=== PATIENT | male | born 1985 | race Caucasian/White ===

== ENCOUNTER 2016-10-31 11:11 | Emergency (ER) | payer SELFPAY ==
--- NOTE | 2016-10-31 16:03 | RAD ---
HISTORY: Testicular pain COMPARISONS: None TECHNIQUE: Multiple transverse and longitudinal ultrasound images were obtained of the scrotum, using grayscale, color Doppler, and spectral Doppler imaging. FINDINGS: RIGHT: RIGHT TESTICLE: The right testicle measures 5.1 x 2.1 x 3 cm. The right testicle is homogeneous in echotexture, without testicular parenchymal mass. Normal arterial and venous waveforms are identified within the right testicle on spectral Doppler imaging. RIGHT EPIDIDYMIS: The right epididymis measures 0.8 cm at the head. RIGHT SCROTUM: There is no hydrocele or varicocele. LEFT: LEFT TESTICLE: The left testicle measures 4.9 x 2.3 x 2.7 cm. The left testicle is homogeneous in echotexture, without testicular parenchymal mass. Normal arterial and venous waveforms are identified within the left testicle on spectral Doppler imaging. LEFT EPIDIDYMIS: The left epididymis measures 1.7 cm at the head. There is a 0.8 cm epididymal cyst. LEFT SCROTUM: There is a small hydrocele. There is a small left varicocele. OTHER: None IMPRESSION: 1. NO TESTICULAR PARENCHYMAL MASS. 2. NO SONOGRAPHIC FEATURES OF TORSION. PLEASE NOTE THAT PARTIAL OR INTERMITTENT TORSION MAY BE SONOGRAPHICALLY NORMAL.. 3. SMALL LEFT HYDROCELE AND VARICOCELE.
[2016-10-31 16:48] VITALS: BP 135/78
--- NOTE | 2016-10-31 16:56 | UC ---
Julita Jordan Janilya, scribed for Madie Larsen DO on 10/31/16 at 1451 . Abdominal Pain Male HPI - HPI Summary HPI Summary: A 31 y/o came in to [facility] presenting w/ a gradual onset of intermittent dull lower abd pain for approximately a month. Currently, pt is in mild pain of severity of 3/10. In the last 3 days, the pain has radiated beyond lower abd pain into the groin area. Severity is increased to 4/10 when pt urinates or passing stool. Pt says "sharp pain passes when he passes stool". However, pt denies burning when urinating. Pt states that bowel movement is daily and normal. Pt denies blood in stool, discharge from penis, nausea, vomiting, diarrhea, rashes, VELAZQUEZ. Pt denies swelling redness or tenderness in the testicles or srotum but states that he feels the pain may be coming from there. Pt does report night sweats in the last 2-3 days. Pt states he recently quit drinking 5 and a half weeks ago. PMHx food poisoning in late July. - History of Current Complaint Chief Complaint: UCAbdominalPain Stated Complaint: ABDOMINAL PAIN Time Seen by Provider: 10/31/16 14:45 Hx Obtained From: Patient Onset/Duration: Gradual Onset, Lasting Weeks, Still Present Timing: Intermittent Episodes Lasting: - hours Severity Initially: Moderate Severity Currently: Moderate Pain Intensity: 3 Pain Scale Used: 0-10 Numeric Location: Suprapubic, Other - lower abd Radiates: Yes Radiates to: Inguinal Character: Dull Aggravating Factor(s):: Nothing Alleviating Factor(s): Nothing Associated Signs And Symptoms: Positive: Diaphoresis. Negative: Fever, Cough, Chest Pain, Dizzy, Back Pain, Constipation, Blood in Stool, Urinary Symptoms, Nausea, Vomiting, Diarrhea, Penile Discharge - Risk Factors Testicular Torsion: Negative - Allergies/Home Medications Allergies/Adverse Reactions: Allergies Allergy/AdvReac Type Severity Reaction Status Date / Time No Known Allergies Allergy Verified 10/31/16 12:42 Home Medications: Home Medications NK [No Home Medications Reported] 10/31/16 [History Confirmed 10/31/16] PMH/Surg Hx/FS Hx/Imm Hx Previously Healthy: Yes Endocrine History Of: Denies: Diabetes - Surgical History Surgical History: None - Family History Known Family History: Positive: Other - prostate cancer - father Negative: Cardiac Disease, Hypertension, Diabetes - Social History Alcohol Use: None Substance Use Type: None Smoking Status (MU): Never Smoked Tobacco Review of Systems Constitutional: Other - diaphoresis Skin: Negative Eyes: Negative ENT: Negative Respiratory: Negative Cardiovascular: Negative Gastrointestinal: Abdominal Pain - lower abd pain Genitourinary: Negative Motor: Negative Neurovascular: Negative Musculoskeletal: Negative Neurological: Negative Psychological: Negative All Other Systems Reviewed And Are Negative: Yes Physical Exam Triage Information Reviewed: Yes Appearance: Well-Appearing, No Pain Distress, Well-Nourished Vital Signs: Initial Vital Signs Temp 99.4 F 10/31/16 12:37 Pulse 60 10/31/16 12:37 Resp 16 10/31/16 12:37 BP 142/98 10/31/16 12:37 Pulse Ox 100 10/31/16 12:37 Vital Signs Reviewed: Yes Eyes: Positive: Conjunctiva Clear. Negative: Discharge ENT: Positive: Hearing grossly normal. Negative: Muffled/hoarse voice Neck exam: Normal Neck: Positive: Supple Respiratory: Positive: Lungs clear, Normal breath sounds, No respiratory distress, No accessory muscle use Cardiovascular: Positive: RRR, No Murmur Abdomen Description: Positive: Soft, Other: - Superpubic tenderness. No swelling , redness or pain with palpation of testicles or scrotum. Prostate is mildly enlarged and nontender. penis is normal. no lsions or discharge. no tenderness in rlq.. Negative: Nontender, CVA Tenderness (R), CVA Tenderness (L) , Distended, Guarding, McBurney's Point Tenderness Bowel Sounds: Positive: Present Musculoskeletal Exam: Normal Neurological: Positive: Alert, Muscle Tone Normal Psychological Exam: Normal Psychological: Positive: Age Appropriate Behavior Skin Exam: Normal Skin: Positive: Other - warm, dry, normal color Abd Pain Male Course/Dx - Differential Dx/Clinical Impression Differential Diagnosis/HQI/PQRI: Appendicitis, Prostatitis, Testicular Torsion, Ureteral Stone, Urinary Tract Infection, Other - ibs, ic Provider Diagnoses: abd pain Discharge - Discharge Plan Condition: Stable Disposition: HOME Patient Education Materials: Abdominal Pain (ED), Irritable Bowel Syndrome (ED) , Laxative, Bulk-forming (By mouth), Probiotic (By mouth) Referrals: No Primary Care Phys,NOPCP [Primary Care Provider] - Additional Instructions: FOLLOW-UP CARE: You should establish with a private physician for follow-up care. If you are unable to get a timely appointment, or if you are worsening, call us or return for re-evaluation. An additional resource available to assist in finding the appropriate physician for your health care needs is the Physician Referral Center. You may contact them by calling [phone]. Diagnostics - Vital Signs Vital Signs Temp Pulse Resp BP Pulse Ox 10/31/16 13:30 98.9 F 54 16 139/79 99 10/31/16 12:37 99.4 F 60 16 142/98 100 - Laboratory Lab Results: Lab Results 10/31/16 Range/Units 12:53 POC Urine Color Yellow POC Urine Clarity Clear POC Urine pH 7.0 (5-9) POC Ur Specif [place] 1.020 (1.010-1.030) POC Urine Protein Trace H (Negative) POC Ur Glucose (UA) Negative (Negative) POC Urine Ketones Negative (Negative) POC Urine Blood Negative (Negative) POC Urine Nitrite Negative (Negative) POC Urine Bilirubin Negative (Negative) POC Urine Urobilinogen 0.2 (Negative) POC U Leukocyte Esteras Negative (Negative) Lab Statement: Any lab studies that have been ordered have been reviewed, and results considered in the medical decision making process. - Ultrasound No standard instances Ultrasound Interpretation: No Acute Changes - Testicular IMPRESSION: 1. NO TESTICULAR PARENCHYMAL MASS. 2. NO SONOGRAPHIC FEATURES OF TORSION. PLEASE NOTE THAT PARTIAL OR INTERMITTENT TORSION MAY BE SONOGRAPHICALLY NORMAL.. 3. SMALL LEFT HYDROCELE AND VARICOCELE. Ultrasound Interpretation Completed By: Radiologist The documentation as recorded by the Julita castañeda Janilya accurately reflects the service I personally performed and the decisions made by , Madie Larsen DO.
== END 2016-10-31 16:45 | disposition home or self-care (01) ==
LOC: UCEAST 11:11
DX: R10.30 Lower abdominal pain, unspecified (principal); N50.819 Testicular pain, unspecified; N43.3 Hydrocele, unspecified; I86.1 Scrotal varices
CPT/HCPCS: 76870; 81003; 87086; 99202; G0463